=== PATIENT | male | born 1995 | race American Indian/Alaskan Native ===

== ENCOUNTER 2019-06-11 00:20 | Emergency (ER) | payer OTHER ==
[2019-06-11 00:56] VITALS: BP 133/68
--- NOTE | 2019-06-11 01:04 | Emergency Department Report ---
ED Male HPI - General Chief complaint: Abdominal Pain Stated complaint: POSSIBLE HERNIA Time Seen by Provider: 06/11/19 01:00 Source: patient Mode of arrival: Ambulatory Limitations: No Limitations - History of Present Illness Initial comments: Pablo is a 24-year-old male who presents with pain and hernia during weight lifting while on the job. The pain was moderate sudden onset while performing squats. He was able to push the bulge back in but was quite noticeable before he self reduced. No previous history of hernia. He is quite active. 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 No other injuries or symptoms. Denies vomiting. Denies constipation. Now he has mild soreness. Past medical history includes includes ADHD. He takes Adderall. MD Complaint: hernia -: Sudden, This evening Location: abdomen Severity: mild Consistency: constant Improves with: other (reduction) Worsens with: movement denies other symptoms ED Review of Systems ROS: Stated complaint: POSSIBLE HERNIA Other details as noted in HPI Comment: All other systems reviewed and negative Constitutional: denies: diaphoresis, fever, malaise Gastrointestinal: abdominal pain. denies: vomiting ED Past Medical Hx - Past Medical History Previous Medical History?: Yes Additional medical history: ADHD - Surgical History Past Surgical History?: No - Social History Smoking Status: Never Smoker Substance Use Type: None ED Physical Exam - General Limitations: No Limitations General appearance: alert, in no apparent distress - Head Head exam: Present: atraumatic, normocephalic - Eye Eye exam: Present: normal appearance - ENT ENT exam: Present: mucous membranes moist - Neck Neck exam: Present: normal inspection, full ROM - Respiratory Respiratory exam: Present: normal lung sounds bilaterally. Absent: respiratory distress, wheezes, rales, rhonchi - Cardiovascular Cardiovascular Exam: Present: regular rate, normal rhythm, normal heart sounds. Absent: systolic murmur, diastolic murmur, rubs, gallop - GI/Abdominal GI/Abdominal exam: Present: soft, normal bowel sounds. Absent: distended, tenderness, guarding, rebound - exam: Present: other (mild tenderness left mons pubis, muscular defect seen) - Extremities Exam Extremities exam: Present: normal inspection - Back Exam Back exam: Present: normal inspection - Neurological Exam Neurological exam: Present: alert, oriented X3 - Psychiatric Psychiatric exam: Present: normal affect, normal mood - Skin Skin exam: Present: warm, dry, intact, normal color. Absent: rash ED Course Vital Signs 06/11/19 00:53 Temperature 98.5 F Pulse Rate 60 Respiratory 14 Rate Blood Pressure 133/68 [Right] O2 Sat by Pulse 98 Oximetry ED Medical Decision Making - Medical Decision Making inguinal hernia according to hx and exam, no evidence of strangulation and incarceration referred to general surgeon, recommended high fiber diet and second opinion by his PCP Critical care attestation.: If time is entered above; I have spent that time in minutes in the direct care of this critically ill patient, excluding procedure time. ED Disposition Clinical Impression: Inguinal hernia Disposition: DC-01 TO HOME OR SELFCARE Is pt being admited?: No Does the pt Need Aspirin: No Condition: Stable Instructions: Inguinal Hernia (ED) Referrals: JULIETA MCINTYRE MD [Primary Care Provider] - 3-5 Days Forms: Work/School Release Form(ED)
== END 2019-06-11 01:14 | disposition home or self-care (01) ==
LOC: ED 00:20
DX: K40.90 Unilateral inguinal hernia, without obstruction or gangrene, not specified as recurrent (principal); F90.9 Attention-deficit hyperactivity disorder, unspecified type